=== PATIENT | male | born 1995 ===

== ENCOUNTER → 2025-05-18 | Outpatient (REF) | payer OTHER ==
[2025-05-18 14:27] LABS: SEMEN APPEARANCE OPAQUE (OPAQUE); SEMEN VISCOSITY LIQUID (LIQUID); SEMEN VOLUME 3.7 ml (2.0-5.0)
[2025-05-18 14:28] LABS: SPERM CONCENTRATION 50.3 M/ml (>=15.0); WBC CONCENTRATION >1 M/ml (<=1 M/ml)
[2025-05-18 14:29] LABS: TOTAL PROGRESSIVE SPERM 110.9 M/Ejac.
== END ==
LOC: M LAB REF 12:28
PROVIDERS: ATTEND Obstetrics & Gynecology
DX: N46.029 Azoospermia due to other extratesticular causes (principal)